=== PATIENT | female | born 1940 | race Caucasian/White ===

== ENCOUNTER 2017-10-24 13:28 | Emergency (ER) | payer MEDICARE ==
[~2017-10-24] VITALS: Ht 152.4 cm; Wt 64.4 kg
[2017-10-24] MEDS ORDERED: AMLO5 PO (14:36)
[2017-10-24] MEDS ORDERED: ASPI81CH PO (14:36)
[2017-10-24] MEDS ORDERED: LEVSOD50 PO (14:37)
== END 2017-10-24 15:05 | disposition home or self-care (01) ==
LOC: ER 13:28
DX: S50.01XA Contusion of right elbow, initial encounter (principal); W06.XXXA Fall from bed, initial encounter
CPT/HCPCS: 73080; 99283-25